=== PATIENT | male | born 2000 | race Two or more races ===

== ENCOUNTER 2022-09-22 14:35 | Emergency (ER) | payer OTHER ==
[~2022-09-22] VITALS: Ht 180.3 cm; Wt 70.0 kg
[2022-09-22 16:22] VITALS: BP 121/69
== END 2022-09-22 16:06 | disposition home or self-care (01) ==
LOC: ER 14:35
DX: S01.01XD Laceration without foreign body of scalp, subsequent encounter (principal); W18.30XD Fall on same level, unspecified, subsequent encounter